=== PATIENT | female | born 1945 | race Two or more races ===

== ENCOUNTER 2018-09-17 12:15 | Inpatient (IN) | payer OTHER ==
[~2018-09-17] VITALS: Ht 162.6 cm; Wt 81.6 kg
[2018-09-17] MEDS ORDERED: METOP PO (13:32)
[2018-09-17] MEDS ORDERED: LOSARTAN-HCTZ1 EACH PO (13:32)
[2018-09-17] MEDS ORDERED: LEVOTHY PO (13:33)
[2018-09-17] MEDS ORDERED: VENLAFAXINE PO (13:33)
[2018-09-17] MEDS ORDERED: ATORVASTATIN CA40 MG PO (13:34)
[2018-09-17] MEDS ORDERED: RESTORIL30 M1 PO (13:34)
[2018-09-17] MEDS ORDERED: QUETIAPINE FUM100 MG PO (13:35)
[2018-09-21] MEDS ORDERED: LEVOTHYROXINE137 MCG PO (11:26)
[2018-09-21] MEDS ORDERED: METOPROLOL SUC200 MG PO (11:27)
[2018-09-21] MEDS ORDERED: VENLAFAXINE HCL75 M1 PO (11:27)
[2018-09-24] MEDS ORDERED: INTEGRA PLUS C1 EACH PO (06:57)
[2018-09-24] MEDS ORDERED: OXYC1TAB9 PO (06:57)
[2018-09-24] MEDS ORDERED: XARELTO10 MG PO (06:57)
== END 2018-09-24 12:22 | DRG 468 ==
LOC: SURH 12:15 → O/R 09-21 10:39 → SURG 09-21 10:39 → SURH 09-21 12:15 → SURG 09-21 21:34
PROVIDERS: ADMIT Orthopaedic Surgery Sports Medicine
PROC: 0SRC0J9 Replacement of Right Knee Joint with Synthetic Substitute, Cemented, Open Approach (ICD-10-PCS; 2018-09-21)
PROC: 0SPC0JZ Removal of Synthetic Substitute from Right Knee Joint, Open Approach (ICD-10-PCS; principal; 2018-09-21 17:30)
DX: T84.038A Mechanical loosening of other internal prosthetic joint, initial encounter (principal); Z96.651 Presence of right artificial knee joint; E03.8 Other specified hypothyroidism; I10 Essential (primary) hypertension; E78.00 Pure hypercholesterolemia, unspecified; M65.861 Other synovitis and tenosynovitis, right lower leg; Z47.33 Aftercare following explantation of knee joint prosthesis; M17.11 Unilateral primary osteoarthritis, right knee